=== PATIENT | female | born 1970 | race Caucasian/White ===

== ENCOUNTER 2019-12-30 06:17 | Emergency (ER) | payer OTHER ==
[~2019-12-30] VITALS: Ht 157.5 cm; Wt 60.0 kg
[~2019-12-30 06:17] MED LIST: ALBU2.5V8 IH; FLUT12AE IH
--- NOTE | 2019-12-30 07:42 | RAD ---
Examination: CHEST AP ONLY History: Reason: chest pain / Spl. Instructions: / History: Comparison: None. Findings: AP portable upright frontal view of the chest was obtained. Calcified granuloma involves the right lower lung field. The cardiomediastinal silhouette is normal. Lungs are clear. There is no pneumothorax. No pleural effusion is appreciated. No acute bone abnormality. IMPRESSION: No acute cardiopulmonary process. Electronically signed by: Donavon Burnett MD (12/30/2019 7:39 AM) [id number]
[2019-12-30 07:46] LABS: BASO % 0 % (0-3); EOS % 0 % (0-3); HEMATOCRIT 40.1 % (36.0-47.0); HEMOGLOBIN 13.8 g/dL (12.0-15.5); LYMPH # 1.8 x10^3/uL (1.0-4.8); LYMPH % 15 % (24-48); MEAN CORPUSCULAR HEMOGLOBIN 30 pg (25-35); MEAN CORPUSCULAR HGB CONC 34 g/dL (31-37); MEAN CORPUSCULAR VOLUME 88 fL (79-100); MONO # 0.4 x10^3/uL (0.0-1.1); MONO % 4 % (0-9); NEUT # 9.7 x10^3/uL (1.8-7.7); NEUT % 81 % (31-73); PLATELET COUNT 363 x10^3/uL (140-400); RED BLOOD COUNT 4.57 x10^6/uL (3.50-5.40); RED CELL DISTRIBUTION WIDTH 14.5 % (11.5-14.5)
--- NOTE | 2019-12-30 07:46 | PHYS DOC ---
Past Medical History Past Medical History: Asthma, GERD Past Surgical History: Tubal ligation, Other Additional Past Surgical Histo: gastric sleeve Smoking Status: Never Smoker Alcohol Use: None Drug Use: None General Adult EDM: Chief Complaint: SHORTNESS OF BREATH HPI: HPI: Patient is a 49 year old female who presents with diffuse hives, lip swelling, abdominal pain. Patient states that she woke up with this this morning. The swelling has gone down on its own. She cannot think of anything new that she has been exposed to. She has never had a reaction like this previously. She denies any shortness of breath or chest pain at this time. Review of Systems: Review of Systems: General: Denies fever, chills, sweats, fatigue Eyes: Denies drainage, blurred vision, eye redness HENT: Denies rhinorrhea, sore throat, earache reports lip swelling Respiratory: Denies cough, shortness of breath, wheezing Cardiac: Denies edema, palpitations, chest pain GI: Reports nausea, abdominal pain MSK: Denies back pain, neck pain Skin: Denies jaundice reports rash Neuro: Denies headache, dizziness Psychiatric: Denies SI/HI Heart Score: Risk Factors: Risk Factors: DM, Current or recent (<one month) smoker, HTN, HLP, family history of CAD, obesity. Risk Scores: Score 0 - 3: 2.5% MACE over next 6 weeks - Discharge Home Score 4 - 6: 20.3% MACE over next 6 weeks - Admit for Clinical Observation Score 7 - 10: 72.7% MACE over next 6 weeks - Early Invasive Strategies Current Medications: Current Medications Medications (Trade) Dose Ordered Sig/Gilson Start Time Stop Time Status Last Admin Dose Admin Albuterol Sulfate (Ventolin Neb Soln) 2.5 mg 1X ONCE 12/30/19 08:00 12/30/19 08:01 Dexamethasone Sodium Phosphate (Decadron) 10 mg 1X ONCE 12/30/19 08:00 12/30/19 08:01 Diphenhydramine HCl (Benadryl) 25 mg 1X ONCE 12/30/19 08:00 12/30/19 08:01 Famotidine (Pepcid Vial) 20 mg 1X ONCE 12/30/19 08:00 12/30/19 08:01 Allergies: Allergies: Allergies Coded Allergies Type Severity Reaction Last Updated Verified No Known Drug Allergies 09/14/13 No Physical Exam: PE: General: Awake, alert, NAD. Well Nourished, well hydrated. Cooperative HEENT: Atraumatic, EOMI, PERRL, airway patent, moist oral mucosa, mild upper lip swelling Neck: Supple, trachea midline Respiratory: CTA bilaterally, normal effort, no wheezing/crackles CV: RRR, no murmur, cap refill <2 GI: Soft, nondistended, nontender, no masses MSK: No obvious deformities Skin: Warm, dry, intact, diffuse hives Neuro: A&O x3, speech NL, sensory and motor grossly intact, no focal deficits Psych: Normal affect, normal mood, not suicidal or homicidal Current Patient Data: Vital Signs: Vital Signs Date Time Temp Pulse Resp B/P (MAP) Pulse Ox O2 Delivery O2 Flow Rate FiO2 12/30/19 06:38 98.6 73 18 122/66 (84) 100 Room Air 98.6 EKG: EKG: [] Radiology/Procedures: Radiology/Procedures: [] Course & Med Decision Making: Course & Med Decision Making Pertinent Labs and Imaging studies reviewed. (See chart for details) Patient is a 49-year-old female who presents to the Emergency Room complaining of hives, abdominal pain, lip swelling never been. Patient's presentation is concerning for an allergic reaction. At this time, patient does not or signs of shock that will require epinephrine. Patient will be treated with Decadron, Pepcid, Benadryl and observed here in the emergency room for any further symptoms. On reevaluation, []. Patient's test results and vitals while in the ED were fully reviewed and discussed with the patient. Patient is stable and at this time does not need admission to the hospital. We have discussed strict return precautions and the importance of following up with their Primary Care Physician. Patient stated understanding and was given an opportunity to ask any questions. Patient is in agreement with plan. Tavo Disclaimer: Tavo Disclaimer: This electronic medical record was generated, in whole or in part, using a voice recognition dictation system. Departure Departure Impression: Primary Impression: Allergic reaction Disposition: HOME, SELF-CARE Condition: GOOD Referrals: NO PCP (PCP) Patient Instructions: Anaphylactic Reaction Scripts Famotidine (PEPCID) 20 Mg Tablet 20 MG PO BID for 3 Days, #6 TAB Prov: RODNEY MACARIO MD 12/30/19 Diphenhydramine Hcl (BENADRYL) 25 Mg Capsule 25 MG PO Q8HRS for 3 Days, #9 CAP Prov: RODNEY MACARIO MD 12/30/19 Prednisone (PREDNISONE) 50 Mg Tablet 1 TAB PO DAILY, #5 TAB Prov: RODNEY MACARIO MD 12/30/19 Justicifation of Admission Dx: Justifications for Admission: Justification of Admission Dx: No RODNEY MACARIO MD Dec 30, 2019 07:46
[2019-12-30 07:55] LABS: CALCIUM 8.3 mg/dL (8.5-10.1); CREATININE 0.8 mg/dL (0.6-1.0); GFR 75.9; POTASSIUM 3.3 mmol/L (3.5-5.1)
[2019-12-30] MEDS ORDERED: DEXAMETHASONE SOD PHOS 4 MG/ML VIAL IVP ONE (08:00)
[2019-12-30] MEDS ORDERED: ALBUTEROL SULFATE 2.5 MG/3 ML NEBU. NEB ONE (08:00)
[2019-12-30] MEDS ORDERED: diphenhydrAMINE 50 MG/ML VIAL IVP ONE (08:00)
[2019-12-30] MEDS ORDERED: FAMOTIDINE 20 MG/2 ML VIAL IVP ONE (08:00)
[2019-12-30 08:01] LABS: ALBUMIN/GLOBULIN RATIO 0.9 (1.0-1.7); TOTAL BILIRUBIN 0.5 mg/dL (0.2-1.0); TOTAL PROTEIN 6.2 g/dL (6.4-8.2)
[2019-12-30] MEDS ORDERED: DIPH25CA58 PO (09:14)
[2019-12-30] MEDS ORDERED: PRED50TA PO (09:14)
[2019-12-30] MEDS ORDERED: FAMO-63 PO (09:14)
[2019-12-30 10:45] VITALS: BP 114/56
--- NOTE | 2020-01-01 07:01 | EKG ---
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
== END 2019-12-30 10:55 | disposition home or self-care (01) ==
LOC: ER 06:17
DX: T78.49XA Other allergy, initial encounter (principal); L50.0 Allergic urticaria; R60.0 Localized edema; R10.9 Unspecified abdominal pain; J45.909 Unspecified asthma, uncomplicated; K21.9 Gastro-esophageal reflux disease without esophagitis; Z98.890 Other specified postprocedural states; Z98.51 Tubal ligation status; Z79.899 Other long term (current) drug therapy; Y92.89 Other specified places as the place of occurrence of the external cause
CPT/HCPCS: 36415; 71045; 80053; 83880; 84484; 85025; 93005; 94640; 96374; 96375; 99285; J1100; J1200; J3490; J7613